=== PATIENT | female | born 1980 | race African-American/Black ===

== ENCOUNTER → 2016-04-08 | Outpatient (CLI) | payer MEDICAID, OTHER ==
[~2016-04-08] MED LIST: PREN1TAB53 PO
== END ==
LOC: HPND 08:12
PROVIDERS: ATTEND Family Medicine
DX: O09.529 Supervision of elderly multigravida, unspecified trimester (principal); Z3A.00 Weeks of gestation of pregnancy not specified
CPT/HCPCS: 76811